=== PATIENT | male | born 1950 | race Hispanic/Latino ===

== ENCOUNTER → 2019-09-14 | Outpatient (CLI) | payer MEDICARE ==
[~2019-09-14] MED LIST: ARICEPT5 MG PO; ASPIRIN81 MG PO; CRESTOR10 MG PO; DOC-Q-LACE100 MG PO; GAVISCON LIQUI355 ML PO; HYDROCODON-ACE1 EA11 PO; HYDROXYCHLOROQ200 MG PO; ISONIAZID300 MG PO; LEVOTHYROXINE88 MCG PO; MEGACE ES625 MG/5 M PO; METOPROLOL TART25 MG PO; NEXIUM40 M1 PO; PLAVIX75 MG PO; PREDNISONE5 MG PO; PROMETHAZINE HC25 M1 PO; RIFAMPIN300 MG PO; VITAMIN B-121000 MCG PO; ZOFRAN ODT4 MG PO
--- NOTE | 2019-09-14 13:12 | Diagnostic Imaging Report ---
EXAM: Renal Ultrasound INDICATION: ^FEELING OF INCOMPLETE BLADDER EMPTYING COMPARISON: None TECHNIQUE: Transverse and longitudinal images of the kidneys and bladder were obtained. FINDINGS: Right Kidney: Length: 11.1 cm Appearance: Normal echogenicity. Collecting system: No hydronephrosis Stones: None Cyst/Mass: None Left Kidney: Length: 12.3 cm Appearance: Normal echogenicity. Collecting system: No hydronephrosis Stones: None Cyst/Mass: None Bladder: No mass or calculi. Bilateral ureteral jets seen. Prevoid volume estimate of 51 cc. IMPRESSION: No hydronephrosis or renal calculi. Signed by: Opal Pittman MD on 09/14/2019 1:08 PM
== END ==
LOC: US 11:35
PROVIDERS: ATTEND Urology
DX: R39.14 Feeling of incomplete bladder emptying (principal)
CPT/HCPCS: 76770